=== PATIENT | female | born 1985 | race African-American/Black ===

== ENCOUNTER 2024-08-04 13:32 | Outpatient (CLI) | payer BC, OTHER | END 2024-08-04 13:33 | disposition home or self-care (01) | LOC: CSHLAB 13:32 | PROVIDERS: ATTEND Obstetrics & Gynecology | DX: Z01.818 Encounter for other preprocedural examination (principal); D25.1 Intramural leiomyoma of uterus; D25.2 Subserosal leiomyoma of uterus; R94.31 Abnormal electrocardiogram [ECG] [EKG] | CPT/HCPCS: 84703; 85027; 86850; 86900; 86901; 93005; 93010 ==

== ENCOUNTER 2024-08-08 10:56 | Day surgery (SDC) | payer OTHER, BC ==
[2024-08-04 13:47] VITALS: BMI 39.4
[2024-08-04 14:28] LABS: Hemoglobin 8.2 g/dL (12.0-15.5); Mean Corpuscular HGB CONC 27.3 g/dL (32.0-36.0); Mean Corpuscular Hemoglobin 20.8 pg (27.0-33.0); Mean Corpuscular Volume 76.1 fL (81.6-98.3); Mean Platelet Volume 9.4 fL (7.4-10.4); Platelet Count 592 10x3/uL (150-450); Red Blood Cell (RBC) Count 3.94 10x6/uL (3.90-5.03); White Blood Cell (WBC) Count 6.3 10x3/uL (3.5-10.5)
[2024-08-04 14:47] LABS: BHCG - Serum Negative (NEGATIVE); Pregs Control Background? CLEAR/WHITE (CLR/WHITE); Pregs Control Bar Appear? YES (CONTROL BAR)
[2024-08-08] MEDS ORDERED: CeleCOXIB 100 MG CAP ONE (11:27)
[2024-08-08] MEDS ORDERED: Gabapentin 300 MG CAP ONE (11:28)
[2024-08-08] MEDS ORDERED: Famotidine/PF 20 mg/2ml Vial ONE (11:28)
[2024-08-08] MEDS ORDERED: metroNIDAZOLE 500 MG (100 mL) BAG ONE (11:46)
[2024-08-08] MEDS ORDERED: Lidocaine 2% PF 5 ML VIAL ONE ×2 (11:59→13:45)
[2024-08-08] MEDS ORDERED: SUGAMMADEX SODIUM 200 MG/2 ML VIAL ONE ×2 (11:59→13:45)
[2024-08-08] MEDS ORDERED: Ondansetron PF 4 MG/2 ML Vial ONE ×2 (11:59→13:45)
[2024-08-08] MEDS ORDERED: Rocuronium Bromide 10 MG/ML (10ML VIAL) ONE ×2 (11:59→13:45)
[2024-08-08] MEDS ORDERED: PROPOFOL 20 ML ONE (12:00)
[2024-08-08] MEDS ORDERED: Bupivacaine HCl 0.5%/Epinephrine 1:200,000/PF 30 ml Vial ONE (12:47)
[2024-08-08] MEDS ORDERED: Midazolam HCl 2 mg/2 ml Vial ONE (12:53)
[2024-08-08] MEDS ORDERED: fentaNYL 50 mcg/mL 1 mL Vial ONE ×3 (12:54→15:02)
[2024-08-08] MEDS ORDERED: CEFAZOLIN 2 GM VIAL ONE (13:03)
[2024-08-08] MEDS ORDERED: ePHEDrine Sulfate 50 MG/10 ML VIAL ONE (13:36)
[2024-08-08] MEDS ORDERED: Dexamethasone 20 MG/5 ML VIAL ONE (13:45)
[2024-08-08] MEDS ORDERED: HYDROcodone/Acetaminophen 5/325 mg Tablet ONE (15:39)
== END 2024-08-08 17:10 | disposition home or self-care (01) ==
LOC: CSHSDC 10:56
PROVIDERS: ATTEND Obstetrics & Gynecology
PROC: 0UT74ZZ Resection of Bilateral Fallopian Tubes, Percutaneous Endoscopic Approach (ICD-10-PCS; principal; 2024-08-08)
PROC: 0UT94ZZ Resection of Uterus, Percutaneous Endoscopic Approach (ICD-10-PCS; principal; 2024-08-08)
DX: D25.9 Leiomyoma of uterus, unspecified (principal); N73.6 Female pelvic peritoneal adhesions (postinfective); N32.89 Other specified disorders of bladder; K66.0 Peritoneal adhesions (postprocedural) (postinfection); K21.9 Gastro-esophageal reflux disease without esophagitis; D64.9 Anemia, unspecified; I10 Essential (primary) hypertension; E78.5 Hyperlipidemia, unspecified; Z98.51 Tubal ligation status; Z87.59 Personal history of other complications of pregnancy, childbirth and the puerperium; Z79.899 Other long term (current) drug therapy
CPT/HCPCS: 84703; 85027; 86850; 86900; 86901; 88307; C9250; J1100; J2250; J2405; J2704; J3010; J3490; S2900